=== PATIENT | female | born 1945 ===

== ENCOUNTER 2018-11-01 18:50 | Emergency (ER) | payer MEDICARE, OTHER ==
[2018-11-01 18:50] VITALS: BMI 24.2
[2018-11-01 19:44] LABS: BASO % 0.6 % (0.0-2.0); EOS # 0.1 K/uL (0.0-0.7); EOS % 1.1 % (0.0-4.0); HEMOGLOBIN 12.3 g/dL (11.0-16.0); LYMPH # 1.7 K/uL (1.0-4.3); LYMPH % 25.2 % (20.0-40.0); MEAN CELL VOLUME 81.6 fL (81.0-99.0); MEAN CORPUSCULAR HEMOGLOBIN 26.8 pg (27.0-31.0); MEAN CORPUSCULAR HGB CONC 32.8 g/dL (33.0-37.0); MEAN PLATELET VOLUME 10.1 fL (7.2-11.7); MONO # 0.7 K/uL (0.0-0.8); MONO % 10.4 % (0.0-10.0); NEUT # 4.3 K/uL (1.8-7.0); NEUT % 62.7 % (50.0-75.0); NRBC % 0.1 % (0.0-2.0); RBC 4.6 Mil/uL (3.80-5.20); RED CELL DISTRIBUTION WIDTH 13.7 % (11.5-14.5); WHITE BLOOD COUNT 6.9 K/uL (4.8-10.8)
[2018-11-01 19:53] LABS: ALB/GLOB RATIO 1.2 (1.0-2.1); ALBUMIN 4.4 g/dL (3.5-5.0); ALT/SGPT 32 U/L (9-52); AST/SGOT 36 U/L (14-36); BLOOD UREA NITROGEN 19 mg/dL (7-17); CALCIUM 9.1 mg/dl (8.6-10.4); GFR NON-AFRICAN AMERICAN > 60
--- NOTE | 2018-11-01 19:53 | C.PDOC ---
History Of Present Illness 73 year old female presents to the ER for evaluation of elevated blood pressure for the past 2-3 weeks. Patient saw her primary, Dr. Chisholm, who instructed her to take one of her blood pressure meds three times a day, however, she does not know the name of the medication. She is currently complaining of generalized weakness but denies chest pain, SOB, palpitations, headache, dizziness, nausea, or vomiting. Time Seen by Provider: 11/01/18 19:13 Chief Complaint (Nursing): High Blood Pressure History Per: Patient History/Exam Limitations: no limitations Onset/Duration Of Symptoms: Days (2-3 weeks) Current Symptoms Are (Timing): Still Present Associated Symptoms: denies: Chest Pain, Dyspnea, Dizziness, Headache, Other (Nausea, Vomiting, Headache, Dizziness, Palpitations) Quality Of Symptoms: Other (Generalized weakness) Recent travel outside of the [place]: No Past Medical History Reviewed: Historical Data, Nursing Documentation, Vital Signs Vital Signs: Last Vital Signs Temp 97.9 F 11/01/18 18:57 Pulse 56 L 11/01/18 18:57 Resp 20 11/01/18 18:57 BP 226/87 H 11/01/18 18:57 Pulse Ox 99 11/01/18 18:57 - Medical History PMH: HTN, Hypothyroidism Denies: Chronic Kidney Disease - [facility] Procedures COLONOSCOPY (03/31/14) PHYSICAL THERAPY NEC (07/30/14) Family History: States: Unknown Family Hx - Social History Hx Tobacco Use: No Hx Alcohol Use: No Hx Substance Use: No - Immunization History Hx Tetanus Toxoid Vaccination: No Hx Influenza Vaccination: Yes Hx Pneumococcal Vaccination: Yes Review Of Systems Except As Marked, All Systems Reviewed And Found Negative. Constitutional: Positive for: Weakness Physical Exam - Physical Exam Appears: Non-toxic, No Acute Distress Skin: Normal Color, Warm, Dry Head: Atraumatic, Normacephalic Eye(s): bilateral: Normal Inspection, PERRL, EOMI Oral Mucosa: Moist Neck: Normal, Supple Chest: Symmetrical, No Tenderness Cardiovascular: Rhythm Regular (Mildly bradycardic), No Murmur Respiratory: Normal Breath Sounds, No Rales, No Rhonchi, No Wheezing Gastrointestinal/Abdominal: Soft, No Tenderness Extremity: Normal ROM (x4) Neurological/Psych: Oriented x3, Normal Speech Gait: Steady ED Course And Treatment - Laboratory Results Result Diagrams: 11/01/18 19:40 11/01/18 19:40 O2 Sat by Pulse Oximetry: 99 (Room air) Pulse Ox Interpretation: Normal Progress Note: Blood work and EKG ordered. Multiple calls placed to Dr. Chisholm, no call back. Disposition Counseled Patient/Family Regarding: Studies Performed, Diagnosis, Need For Followup - Disposition Referrals: Latonia Chisholm MD [Staff Provider] - Disposition: HOME/ ROUTINE Disposition Time: 22:15 Condition: STABLE Additional Instructions: FOLLOW UP WITH DR CHISHOLM ON SATURDAY RETURN TO ER IF YOU HAVE ANY CONCERNING SYMPTOMS, SUCH CHEST PAIN, TROUBLE BREATHING, HEADACHE, DIZZINESS, ETC Instructions: High Blood Pressure (DC) Forms: [employer] (Maltese) Print Language: IRISH - POA Present On Arrival: None - Clinical Impression Clinical Impression: Hypertension - Scribe Statement The provider has reviewed the documentation as recorded by the Scribe Carlo Galo All medical record entries made by the Scribe were at my direction and personally dictated by me. I have reviewed the chart and agree that the record accurately reflects my personal performance of the history, physical exam, medical decision making, and the department course for this patient. I have also personally directed, reviewed, and agree with the discharge instructions and disposition.
[2018-11-01 20:05] LABS: CK-MB 1.89 ng/mL (0.0-3.38)
--- NOTE | 2018-11-01 20:05 | C.PDOC ---
Time Seen by Provider: 11/01/18 19:13 Chief Complaint (Nursing): High Blood Pressure Past Medical History Vital Signs: Last Vital Signs Temp 97.9 F 11/01/18 18:57 Pulse 56 L 11/01/18 18:57 Resp 20 11/01/18 18:57 BP 226/87 H 11/01/18 18:57 Pulse Ox 99 11/01/18 18:57 - Medical History PMH: HTN, Hypothyroidism Denies: Chronic Kidney Disease - [facility] Procedures COLONOSCOPY (03/31/14) PHYSICAL THERAPY NEC (07/30/14) Family History: States: Unknown Family Hx - Social History Hx Tobacco Use: No Hx Alcohol Use: No Hx Substance Use: No - Immunization History Hx Tetanus Toxoid Vaccination: No Hx Influenza Vaccination: Yes Hx Pneumococcal Vaccination: Yes ED Course And Treatment O2 Sat by Pulse Oximetry: 99 Disposition - Disposition
[2018-11-01 20:58] LABS: SQUAMOUS EPITHIAL 1 /hpf (0-5); URINE BILIRUBIN NEGATIVE (NEGATIVE); URINE BLOOD NEGATIVE (NEGATIVE); URINE CLARITY Clear (Clear); URINE COLOR Straw (YELLOW); URINE GLUCOSE (UA) NORMAL (Normal); URINE LEUKOCYTE ESTERASE NEG Leu/uL (Negative); URINE PROTEIN NEGATIVE (NEGATIVE); URINE UROBILINOGEN NORMAL mg/dL (0.2-1.0)
[2018-11-01 22:29] VITALS: BP 173/64; PULSE 53; RESP 16; TEMP 97.8; O2SAT 98
--- NOTE | 2018-11-03 20:44 | CARD ---
APPROVED REPORT Date of service: 11/01/2018 EKG Measurement Heart [id number] [id number] <Conclusion> Sinus bradycardia Right bundle branch block Minimal voltage criteria for LVH, may be normal variant Abnormal ECG
== END 2018-11-01 22:30 | disposition home or self-care (01) ==
LOC: C.ER 18:50
DX: I10 Essential (primary) hypertension (principal); E03.9 Hypothyroidism, unspecified